=== PATIENT | female | born 1980 | race Caucasian/White ===

== ENCOUNTER 2017-03-06 10:44 | Emergency (ER) | payer OTHER ==
[~2017-03-06] VITALS: Ht 170.2 cm; Wt 59.0 kg
[~2017-03-06 10:44] MED LIST: CLON2TAB PO; DEPA500T PO; SERO200T PO
[2017-03-06 10:49] VITALS: BP 122/72; PULSE 87; RESP 20; TEMP 99.3; O2SAT 98
[2017-03-06] MEDS ORDERED: CLON2TAB PO (11:06)
[2017-03-06] MEDS ORDERED: PERM5CRE TOPICAL (11:09)
--- NOTE | 2017-03-06 11:11 | PD ---
HPI Chief Complaint: Skin Problem Time Seen by Provider: 11:01 Travel History International Travel<30 days: No Contact w/Intl Traveler<30days: No Traveled to known affect area: No History of Present Illness HPI WORKS AT [facility], WHERE THERE IS A SCABIES OUTBREAK ACCORDING TO HER NOW SHE HAS DEVELOPED ITCHY AMBROCIO, AND IS CONCERNED. AMBROCIO ARE THROUGHOUT BODY, FOREARMS PFSH Past Medical History Bipolar Disorder: Yes Anxiety: Yes Depression: Yes Diminished Hearing: No Psychiatric: Yes ("multiple personalities and ptsd") Pancreatitis: Yes Schizophrenia: Yes Seizures: Yes ?: Not LMP: 02/15/17 : 7 Para: 3 Miscarriage: 3 : 1 Tubal Ligation: Yes (2006) Past Surgical History Tonsillectomy: Yes Social History Alcohol Use: Yes (OCCASIONAL) Tobacco Use: Yes (2PPD) Substance Use: No Allergies-Medications (Allergen,Severity, Reaction): Coded Allergies: Amoxicillin (Verified Allergy, Severe, rash, HIVES, 09/04/15) Penicillin (Verified Allergy, Severe, rash, HIVES, 09/04/15) Codeine (Verified Adverse Reaction, Severe, "passed out,fainted", 09/04/15) Reported Meds & Prescriptions Reported Meds & Active Scripts Active Depakote 500 mg (Divalproex Sodium) 500 Mg Tab 1 Tab PO BID Reported Clonazepam 2 Mg Tab 2 Mg PO Q8 Seroquel 200 mg (Quetiapine Fumarate) 200 Mg Tab 200 Mg PO BID Review of Systems Except as stated in HPI: all other systems reviewed are Neg Skin: Positive Rash, Positive Itching Physical Exam Narrative GENERAL: SKIN: Warm and dry....SMALL AMBROCIO WITH SMALL BURROWS, NO ACTIVE MITES NOTED HEAD: Atraumatic. Normocephalic. EYES: Pupils equal and round. No scleral icterus. No injection or drainage. ENT: No nasal bleeding or discharge. Mucous membranes pink and moist. NECK: Trachea midline. No JVD. CARDIOVASCULAR: Regular rate and rhythm. RESPIRATORY: No accessory muscle use. Clear to auscultation. Breath sounds equal bilaterally. GASTROINTESTINAL: Abdomen soft, non-tender, nondistended. Hepatic and splenic margins not palpable. MUSCULOSKELETAL: Extremities without clubbing, cyanosis, or edema. No obvious deformities. NEUROLOGICAL: Awake and alert. No obvious cranial nerve deficits. Motor grossly within normal limits. Five out of 5 muscle strength in the arms and legs. Normal speech. PSYCHIATRIC: Appropriate mood and affect; insight and judgment normal. Data Data Last Documented VS Vital Signs Date Time Temp Pulse Resp B/P Pulse Ox O2 Delivery O2 Flow Rate FiO2 03/06/17 10:49 99.3 87 20 122/72 98 MDM Medical Decision Making Medical Screen Exam Complete: Yes Emergency Medical Condition: Yes Medical Record Reviewed: Yes Differential Diagnosis DUST MITES V SCABIES V Narrative Course PATIENT HAD SUSPICIOUS SKIN AMBROCIO SUGGESTIVE OF SCABIES, NO ACTUAL MITES NOTED Diagnosis Primary Impression: POSSIBLE SCABIES Patient Instructions: General Instructions, Scabies (ED) Scripts Permethrin Topical 5% 5% Cream1 Applic TOPICAL ONCE #1 TUBE Ref 0 Prov:Sulaiman Ulrich MD 03/06/17 Permethrin Topical 5% 5% Cream1 Applic TOPICAL ONCE #1 TUBE Ref 0 Prov:Sulaiman Ulrich MD 03/06/17 Disposition: 01 DISCHARGE HOME Condition: Stable Sulaiman Ulrich MD Mar 06, 2017 11:11
== END 2017-03-06 12:08 | disposition home or self-care (01) ==
LOC: NEPD 10:44
DX: R21 Rash and other nonspecific skin eruption (principal)
CPT/HCPCS: 99283